=== PATIENT | male | born 1935 | race Two or more races ===

== ENCOUNTER → 2018-10-08 | Emergency (ER) | payer OTHER ==
[~2018-10-08] VITALS: Ht 175.3 cm; Wt 78.5 kg
[~2018-10-08] MED LIST: IV NS 0.9% 1,000 ML BAG IV ONE; MAG HYDROX/AL HYDROX/SIMETH 30 ML UDC ONE; MAG HYDROX/AL HYDROX/SIMETH 30 ML UDC PO ONE; ONDANSETRON HCL/PF 4 MG/2 ML VIAL IVP ONE; ONDANSETRON HCL/PF 4 MG/2 ML VIAL ONE
--- NOTE | 2018-10-08 07:59 | NUR ---
PT ALERT AND OREIENTED X 4 WITH C/C OF BEING NAUSEATED WITH ABDOMINAL DISCOMFORT. PT BROUGHT IN BY PARAMEDICS. WILL CONTINUE TO FOLLOW
[2018-10-08 08:23] LABS: BASOPHILS # (AUTO) 0.1 /CMM (0.0-0.2); EOSINOPHILS % (AUTO) 1.1 % (0.0-6.0); HEMATOCRIT 44 % (39-51); HEMOGLOBIN 14.7 g/dL (13.5-17.5); LYMPHOCYTES # (AUTO) 0.9 /CMM (0.8-4.8); LYMPHOCYTES % (AUTO) 9.1 % (20.0-44.0); MEAN CORPUSCULAR HGB CONC 34 g/dl (31.0-36.0); MEAN CORPUSCULAR VOLUME 97 fL (80-96); MONOCYTES # (AUTO) 0.6 /CMM (0.1-1.30); MONOCYTES % (AUTO) 5.8 % (2.0-12.0); NEUTROPHILS # (AUTO) 8.5 /CMM (1.8-8.9); PLATELET COUNT (AUTO) 278 /CMM (150-450); WHITE BLOOD COUNT (AUTO) 10.2 K/uL (4.3-11.0)
[2018-10-08 08:34] LABS: CARBON DIOXIDE 24 mmol/L (21-32); CHLORIDE 103 mmol/L (98-107); CREATININE 2.1 mg/dL (0.6-1.3); GLUCOSE 135 mg/dL (74-106); POTASSIUM 4.3 mmol/L (3.5-5.1); SODIUM SERUM 139 mmol/L (136-145); UREA NITROGEN, BLOOD 25 mg/dL (7-18)
[2018-10-08 08:39] LABS: ALANINE AMINOTRANSFERASE 24 U/L (12-78); ALBUMIN 4.3 g/dL (3.4-5.0); ALKALINE PHOSPHATASE 114 U/L (46-116); ASPARTATE AMINOTRANSFERASE 22 U/L (15-37); BILIRUBIN,DIRECT 0.1 mg/dL (0.0-0.2); BILIRUBIN,TOTAL 0.6 mg/dL (0.2-1.0); LIPASE 247 U/L (73-393)
[2018-10-08 08:48] VITALS: BP 150/75
--- NOTE | 2018-10-08 08:49 | NUR ---
PT DISCHARGED TO HOME GIVEN ACI AND PRESCRIPTION
== END | disposition home or self-care (01) ==
LOC: ER 07:53
DX: R11.0 Nausea (principal); R19.7 Diarrhea, unspecified; E86.0 Dehydration; I10 Essential (primary) hypertension
CPT/HCPCS: 36415; 80048; 80076; 83690; 84484; 85025; 93005; 96361; 96374; 99284; A4606; J2405; J7030; Z7610